=== PATIENT | female | born 1955 | race Caucasian/White ===

== ENCOUNTER 2016-10-26 08:10 | Emergency (ER) | payer BC ==
[2016-10-26] MEDS ORDERED: METHYLPREDNISOLONE ACETATE 80 MG/ML VIAL IM ONE (08:59)
[2016-10-26] MEDS ORDERED: ORPHENADRINE CITRATE 30 MG/ML VIAL IM ONE (08:59)
[2016-10-26] MEDS ORDERED: ORPHENADRINE CITRATE 30 MG/ML VIAL ONE (09:03)
[2016-10-26] MEDS ORDERED: METHYLPREDNISOLONE ACETATE 80 MG/ML VIAL ONE (09:03)
[2016-10-26 09:49] VITALS: BP 152/78
--- NOTE | 2016-10-26 10:12 | ERNOTE ---
Lower Extremity HPI - General Lower Extremities Pain: leg: left - extending down from the left lower lumbar region Time Seen by Provider: 10/26/16 08:30 Source: patient, family Exam Limitations: no limitations - Immun/Allergies/Home Medications Immunizations: IMMUNIZATION HX Immunizations Up to Date Yes Allergies/Adverse Reactions: Allergies Allergy/AdvReac Type Severity Reaction Status Date / Time Prostaglandins E1 Allergy Verified 10/26/16 08:27 Home Medications: HOME MEDICATIONS Cyclobenzaprine HCl [Flexeril] 10 mg PO TID PRN #30 tab 10/26/16 [Last Taken Unknown] Hydrochlorothiazide [Microzide] 12.5 mg PO DAILY 10/26/16 [Last Taken Unknown] Lisinopril [Zestril] 40 mg PO DAILY 10/26/16 [Last Taken Unknown] amLODIPine BESYLATE [Norvasc] 10 mg PO DAILY 10/26/16 [Last Taken Unknown] predniSONE [Deltasone] 20 mg PO BID #10 tablet 10/26/16 [Last Taken Unknown] traMADol HCL [Ultram] 50 mg PO QID PRN #20 tablet 10/26/16 [Last Taken Unknown] - History of Present Illness Narrative: Patient complains of pain that starts in the left lower lumbar region and now extends all the way down through the posterior thigh and the calf and into the proximal foot. Describes the pain as at least moderate in intensity burning in nature and is worse when she tries to bend or straighten her leg. Occurred: other - somewhat chronic in nature, has been coming and going for the past few months and simply got worse over the last few days Location of Incident: home Method of Injury: Reports: no apparent injury Reason for Fall: Reports: unknown Loss of Consciousness: Reports: no loss of consciousness Associated Symptoms: Reports: other injuries - patient has painful weightbearing on the left leg Other Injuries: Reports: none Prior Treament: Reports: recently seen Review of Systems - Review of Systems Constitutional: Present: See HPI EYE: Present: no symptoms reported ENT: Present: no symptoms reported Respiratory: Present: no symptoms reported Cardiology: Present: no symptoms reported Gastrointestinal/Abdominal: Present: no symptoms reported Genitourinary: Present: no symptoms reported Musculoskeletal: Present: See HPI Skin: Present: no symptoms reported Neurological: Present: See HPI Endocrine: Present: no symptoms reported Hematologic/Lymphatic: Present: no symptoms reported Psych: Present: no symptoms reported - Patient's Past Medical History Patient History - Medical: No pertinent hx Patient History - Cardiac/Respiratory: Hypertension, Hyperlipidemia Patient History - Cancer: No Hx of Cancer Patient History - Surgical Procedures: Cholecystectomy Patient History - Other: None - Social History Living Situations: home Psych History: No pertinent hx Alcohol Use: none Drug Use: none - Immunizations Immunizations Up to Date: Yes Physical Exam - Physical Exam General Appearance: Present: wd/wn, alert, moderate distress Head Exam: Present: normal inspection Eye Exam: Normal inspection: bilateral, PERRL: bilateral Ears, Nose, Throat: Present: normal ENT inspection, H, normal pharynx Neck: Present: normal inspection, nontender Respiratory: Present: no respiratory distress, normal breath sounds, no accessory muscle use, chest nontender, lungs clear Cardiovascular/Chest: Present: regular rate, rhythm, no murmur, normal peripheral pulses Gastrointestinal/Abdominal: Present: normal bowel sounds, nontender, nondistended, soft, no organomegaly Rectal Exam: Present: deferred Back Exam: Present: decreased range of motion, muscle spasm, other - positive straight leg raise her on the left Extremity Exam: Present: normal inspection, non-tender, no edema, normal range of motion Neurological Exam: Present: alert, oriented, normal mood/affect Skin Exam: Present: normal color, warm/dry Lymphatic Exam: Present: no adenopathy ED Progress - Vital Signs Patient's Vital Signs:: I have reviewed the patient's vital signs. Vital Signs: Vital Signs 10/26/16 10/26/16 10/26/16 08:21 08:58 09:48 Temperature 36.2 C L 0 C L Pulse Rate 81 84 84 Respiratory 12 12 12 Rate Blood Pressure 151/78 154/80 152/78 O2 Sat by Pulse 99 99 99 Oximetry - X-Ray X-Ray #1 X-Ray: lumbosacral - Progress/Reassessment Chief Complaint: Lower Extremity Pain/ Injury Plan - Plan Plan: I believe that the patient would benefit from an MRI as is very likely she has some component of disc disease in the lumbar spine. Whether or not it is herniated or simply radicular pain is unclear at this time. Patient be started on pain medicine and muscle relaxer and anti-inflammatory in the form of prednisone. She has had bleeding from aspirin the past so I will refrain from any NSAIDs at this time. Departure Clinical Impression: Sciatica Qualifiers: Laterality: left Qualified Code(s): M54.32 - Sciatica, left side - Departure Disposition: Home self-care Condition: Good Instructions: Sciatica, [id number] Prescriptions: Cyclobenzaprine HCl [Flexeril] 10 mg PO TID PRN #30 tab PRN Reason: MUSCLE SPASMS predniSONE [Deltasone] 20 mg PO BID #10 tablet traMADol HCL [Ultram] 50 mg PO QID PRN #20 tablet PRN Reason: Moderate Pain
== END 2016-10-26 10:15 | disposition home or self-care (01) ==
LOC: ER 08:10
DX: M54.32 Sciatica, left side (principal); I10 Essential (primary) hypertension; E78.5 Hyperlipidemia, unspecified